=== PATIENT | female | born 1980 | race African-American/Black ===

== ENCOUNTER 2021-05-04 02:00 | Inpatient (IN) | payer OTHER ==
[2021-05-04] MEDS ORDERED: AMPICILLIN SODIUM 2 GM VIAL ONE (02:55)
[2021-05-04] MEDS ORDERED: AMPICILLIN - 2 GM in SODIUM CHLORIDE 100 ML IVPB ONE (03:00)
[2021-05-04] MEDS ORDERED: ELECTROLYTE-148 SOLN 500 ML IV ONE (03:00)
[2021-05-04] MEDS ORDERED: PROMETHAZINE HCL 25 MG/1 ML VIAL IVPUSH ONE (03:11)
[2021-05-04] MEDS ORDERED: BUTORPHANOL TARTRATE 1 MG/ML VIAL IVPB ONE (03:11)
[2021-05-04] MEDS ORDERED: OXYTOCIN 30 UNITS in 0.9% NS 30 UNIT/500 ML INFUS.BAG IVPB SCH (03:15)
[2021-05-04] MEDS ORDERED: DEXTROSE 5%-LACTATED RINGERS 1,000 ML IV SCH (03:15)
[2021-05-04] MEDS ORDERED: LIDOCAINE HCL 1% PRESERVATIVE FREE - 30ML VIAL ONE (03:19)
[2021-05-04] MEDS ORDERED: BUTORPHANOL TARTRATE 2 MG/ML VIAL ONE (03:19)
[2021-05-04] MEDS ORDERED: OXYTOCIN 20 UNITS in 0.9% NS 20 UNIT/1,000 ML INFUS.BAG IV ONE (03:19)
[2021-05-04] MEDS ORDERED: PROMETHAZINE HCL 25 MG/1 ML VIAL ONE (03:19)
[2021-05-04] MEDS ORDERED: OXYTOCIN 30 UNITS in 0.9% NS 30 UNIT/500 ML INFUS.BAG IVPB ONE (03:20)
[2021-05-04] MEDS ORDERED: ELECTROLYTE-148 SOLN 1,000 ML IV SCH (04:00)
[2021-05-04 04:03] VITALS: BMI 32.5
[2021-05-04 04:37] LABS: HIV INTERPRETATION NEGATIVE (NEGATIVE)
[2021-05-04] MEDS ORDERED: BISACODYL 10 MG SUPP.RECT RC PRN (05:41)
[2021-05-04] MEDS ORDERED: WITCH HAZEL 50% (TUCKS) 40 PAD/JAR PAD TP PRN (05:41)
[2021-05-04] MEDS ORDERED: BENZOCAINE 20% 57 GM BOTTLE TP PRN (05:41)
[2021-05-04] MEDS ORDERED: METHYLERGONOVINE MALEATE 0.2 MG/1 ML AMP IM PRN (05:41)
[2021-05-04] MEDS ORDERED: ACETAMINOPHEN 325 MG TABLET (FP) PO PRN (05:41)
[2021-05-04] MEDS ORDERED: oxyCODONE HCL 5 MG TABLET PO PRN (05:41)
[2021-05-04] MEDS ORDERED: BENZOCAINE 28 GM HEMORRHOIDAL OINTMENT TP PRN (05:41)
[2021-05-04] MEDS ORDERED: OXYTOCIN 20 UNITS in 0.9% NS 20 UNIT/1,000 ML INFUS.BAG IV SCH (05:45)
[2021-05-04] MEDS: AMPICILLIN - 1 GM in SODIUM CHLORIDE 100 ML IVPB SCH ×2 (07:26→20:18)
[2021-05-04] MEDS: IBUPROFEN 600 MG TABLET (FP) PO PRN ×3 (10:30→20:18)
[2021-05-04] MEDS: PRENATAL VITAMINS W/ FOLIC ACID TABLET (FP) PO SCH (10:31)
[2021-05-05] MEDS: IBUPROFEN 600 MG TABLET (FP) PO PRN ×5 (03:33→21:04)
[2021-05-05 07:17] LABS: BASO % 0.2 % (0-2.0); EOS % 1.8 % (0-4.5); HEMATOCRIT 28.8 % (32.4-45.2); HEMOGLOBIN 9.2 GM/dL (10.7-15.3); LYMPH % 35.3 % (8-40); MCH 24.7 pg (25.7-33.7); MCHC 31.9 g/dl (32.0-36.0); MEAN CELL VOLUME 77.5 fl (80-96); MEAN PLT VOLUME 8.6 fl (7.5-11.1); MONO % 5.9 % (3.8-10.2); NEUT % 56.8 % (42.8-82.8); PLATELET COUNT 179 10^3/uL (134-434); RBC 3.71 M/mm3 (3.60-5.2); RDW 16.5 % (11.6-15.6); WHITE BLOOD COUNT 8.6 K/mm3 (4.0-10.0)
[2021-05-05] MEDS: PRENATAL VITAMINS W/ FOLIC ACID TABLET (FP) PO SCH (09:14)
[2021-05-05] MEDS ORDERED: DIPHTH,PERTUSS(ACELL),TET 0.5 ML DISP.SYRIN IM ONE (10:00)
[2021-05-05] MEDS ORDERED: SENNOSIDES/DOCUSATE COMBO (SENNA PLUS) TABLET (UD) PO PRN (22:00)
[2021-05-06 00:13] VITALS: PULSE 85
[2021-05-06] MEDS: IBUPROFEN 600 MG TABLET (FP) PO PRN ×2 (05:36→09:58)
[2021-05-06 09:37] VITALS: BP 108/72; TEMP 96.5
[2021-05-06] MEDS: PRENATAL VITAMINS W/ FOLIC ACID TABLET (FP) PO SCH (09:56)
== END 2021-05-06 14:55 | disposition home or self-care (01) | DRG 807 ==
LOC: JLDR 02:00 → J3W 08:15
PROVIDERS: ADMIT Obstetrics & Gynecology; ATTEND Obstetrics & Gynecology
PROC: 10E0XZZ Delivery of Products of Conception, External Approach (ICD-10-PCS; principal; 2021-05-04)
PROC: 10907ZC Drainage of Amniotic Fluid, Therapeutic from Products of Conception, Via Natural or Artificial Opening (ICD-10-PCS; 2021-05-04)
DX: O48.0 Post-term pregnancy (principal); Z37.0 Single live birth; O99.824 Streptococcus B carrier state complicating childbirth; O69.81X0 Labor and delivery complicated by cord around neck, without compression, not applicable or unspecified; Z3A.40 40 weeks gestation of pregnancy
CPT/HCPCS: 36415; 59409; 85025; 87389; 90715